=== PATIENT | female | born 1995 | race African-American/Black ===

== ENCOUNTER 2018-12-14 19:17 | Inpatient (IN) ==
[2018-12-14 19:46] LABS: Apearance,Urine CLEAR (Clear); Bilirubin,Urine Negative (Negative); Blood, Urine Negative (Negative); Glucose,Urine (UA) 50 mg/dL (Negative); Ketones,Urine Negative (Negative); Mucus,Urine Occasional /LPF (Occasional); Nitrite,Urine Negative (Negative); Protein,Urine Negative; RBC,Urine 1 /HPF (0-4); Squamous Epithelial Cell,Urine Occasional /HPF (0-10); Urine Color Yellow (Yellow); Urine Specific Gravity 1.011 (1.001-1.035); Urine Urobilinogen < 2.0 EU/DL (0.2-1.0); WBC,Urine 4 /HPF (0-6)
[2018-12-14] MEDS ORDERED: BUTORPHANOL 1 MG/ML VIAL IM ONE (20:22)
[2018-12-14] MEDS ORDERED: ONDANSETRON 4 MG/2 ML VIAL IM ONE (20:23)
[2018-12-14] MEDS: LACTATED RINGERS 1,000 ML IV SCH (22:45)
[2018-12-14] MEDS ORDERED: ONDANSETRON 4 MG/2 ML VIAL IV PRN (23:10)
[2018-12-14] MEDS ORDERED: MEPERIDINE 50 MG/1 ML VIAL IM PRN (23:10)
[2018-12-14] MEDS ORDERED: BUTORPHANOL 2 MG/ML VIAL IV PRN (23:10)
[2018-12-15 00:20] LABS: Basophils % 0.3 % (0.0-0.8); Eosinophils # 0.2 10*3/uL (0.0-0.87); Eosinophils % 1.2 % (0.00-10.9); Hematocrit 35.8 VOL% (35.7-47.0); Immature Granulocytes % 0.6 %; Immature Granulocytes Absolute 0.08 #; Lymphocytes # 1.3 10*3/uL (1.4-4.0); Lymphocytes % 9.5 % (21.3-54.2); Mean Corpuscular HGB Conc 30.7 GM/DL (32-36); Monocytes % 6.7 % (1.7-12.7); Neutrophils % 81.7 % (38.7-73.9); Platelet Count 222 T/CUMM (130-400); Red Blood Count 4.84 MC/CUMM (3.8-5.5); Red Cell Distribution Width 15.8 % (9.3-17.3); White Blood Count 14.1 T/CUMM (4-12)
[2018-12-15] MEDS: OXYTOCIN/LR 20 UNIT/1,000 ML BAG IV SCH ×2 (00:27→09:09)
[2018-12-15 00:47] LABS: Alanine Aminotransferase 20 U/L (13-56); Albumin 2.9 G/DL (3.4-5.0); Alkaline Phosphatase 163 U/L (45-117); Aspartate Amino Transferase 19 U/L (0-37); Bilirubin,Total < 0.39 MG/DL (0.2-1.0); Blood Urea Nitrogen 5 MG/DL (7-18); Calcium 8.4 MG/DL (8.5-10.1); Glucose 113 MG/DL (74-106); Osmolality,Calculated 278.3 MOS/KG (273-304); Total Protein 6.7 G/DL (6.4-8.3)
[2018-12-15] MEDS ORDERED: hydrOXYzine HCL 25 MG/1 ML VIAL IM PRN (01:52)
[2018-12-15] MEDS ORDERED: ePHEDrine 50 MG/ML AMP IV PRN (01:52)
[2018-12-15] MEDS ORDERED: diphenhydrAMINE 50 MG/1 ML VIAL IV PRN ×2 (01:52)
[2018-12-15] MEDS ORDERED: NALOXONE 0.4 MG/ML VIAL IV PRN (01:52)
[2018-12-15] MEDS ORDERED: CITRIC ACID/SODIUM CITRATE 30 ML UDCUP PO ONE (01:54)
[2018-12-15] MEDS ORDERED: FAMOTIDINE 20 MG/2 ML VIAL IV ONE (01:54)
[2018-12-15] MEDS ORDERED: fentaNYL 2 MCG/ROPIV 0.2% EPID 100 ML EPIDURAL SCH (02:00)
[2018-12-15] MEDS ORDERED: miSOPROStol 200 MCG TABLET ONE (02:04)
[2018-12-15] MEDS ORDERED: LIDOCAINE 1% 50 ML VIAL ONE (02:04)
[2018-12-15] MEDS: LACTATED RINGERS 1,000 ML IV SCH (02:28)
[2018-12-15 04:58] LABS: Cord Arterial Blood HCO3 20.8 MMOL/L
[2018-12-15 04:59] LABS: Cord Venous Blood HCO3 25.1 MMOL/L; Cord Venous Blood PCO2 47.3 MMHG; Cord Venous Blood PO2 52.9 MMHG
[2018-12-15] MEDS ORDERED: PSEUDOEPHEDRINE 30 MG TABLET PO PRN (09:02)
[2018-12-15] MEDS: DOCUSATE SODIUM 100 MG CAPSULE PO SCH ×2 (09:08→21:21)
[2018-12-15] MEDS ORDERED: BENZOCAINE 20%/MENTHOL 0.5% SPRAY 56 GM CAN TOP PRN (15:52)
[2018-12-15] MEDS: IBUPROFEN 800 MG TABLET PO PRN (19:35)
[2018-12-15] MEDS: ACETAMINOPHEN/CODEINE 300-30 MG TABLET PO PRN (19:35)
[2018-12-16] MEDS: LACTATED RINGERS 1,000 ML IV SCH (02:47)
[2018-12-16] MEDS: OXYTOCIN/LR 20 UNIT/1,000 ML BAG IV SCH (02:47)
[2018-12-16 05:47] LABS: Basophils % 0.2 % (0.0-0.8); Eosinophils # 0.3 10*3/uL (0.0-0.87); Eosinophils % 2.8 % (0.00-10.9); Hematocrit 34.4 VOL% (35.7-47.0); Immature Granulocytes % 0.4 %; Immature Granulocytes Absolute 0.05 #; Lymphocytes # 1.5 10*3/uL (1.4-4.0); Lymphocytes % 12.2 % (21.3-54.2); Mean Corpuscular Volume 73.7 FL (87-102); Monocytes % 6.2 % (1.7-12.7); Neutrophils % 78.2 % (38.7-73.9); Platelet Count 290 T/CUMM (130-400); Red Blood Count 4.67 MC/CUMM (3.8-5.5); Red Cell Distribution Width 15.9 % (9.3-17.3); White Blood Count 12.1 T/CUMM (4-12)
[2018-12-16 06:11] LABS: Acanthocytes Few; Anisocytosis 1+; Ovalocytes 1+; Platelet Estimate Adequate
[2018-12-16] MEDS: ACETAMINOPHEN/CODEINE 300-30 MG TABLET PO PRN (08:02)
[2018-12-16] MEDS: IBUPROFEN 800 MG TABLET PO PRN ×2 (08:03→19:21)
[2018-12-16] MEDS: DOCUSATE SODIUM 100 MG CAPSULE PO SCH ×2 (08:03→20:45)
[2018-12-17 07:21] VITALS: BP 124/74
[2018-12-17] MEDS: DOCUSATE SODIUM 100 MG CAPSULE PO SCH (08:49)
== END 2018-12-17 12:40 | disposition home or self-care (01) | DRG 560 ==
LOC: N.LDOUT 19:17 → N.LD 19:19 → N.OB 12-15 08:19
PROVIDERS: ADMIT Obstetrics & Gynecology; ATTEND Obstetrics & Gynecology

== ENCOUNTER 2020-08-22 01:33 | Inpatient (IN) ==
[2020-08-22] MEDS ORDERED: AMPICILLIN 2,000 MG VIAL ONE (01:49)
[2020-08-22] MEDS ORDERED: SODIUM CHLORIDE 0.9% 0 ML IV ONE (01:50)
[2020-08-22] MEDS ORDERED: AMPICILLIN INJ 2,000 MG in SODIUM CHLORIDE 0.9% 100 ML IV ONE (02:00)
[2020-08-22] MEDS ORDERED: ONDANSETRON 4 MG/2 ML VIAL IV PRN (02:05)
[2020-08-22] MEDS ORDERED: TRANEXAMIC ACID 1,000 MG/10 ML VIAL ONE (02:08)
[2020-08-22] MEDS ORDERED: METHYLERGONOVINE 0.2 MG/1 ML AMP ONE (02:08)
[2020-08-22] MEDS ORDERED: miSOPROStoL 200 MCG TABLET ONE ×2 (02:08→04:40)
[2020-08-22] MEDS ORDERED: CARBOPROST TROMETHAMINE 250 MCG/ML AMP IM ONE (02:08)
[2020-08-22] MEDS ORDERED: OXYTOCIN/LR 20 UNIT/1,000 ML BAG IV ONE ×3 (02:08→04:23)
[2020-08-22] MEDS ORDERED: SODIUM CHLORIDE 0.9% 100 ML IV ONE (02:09)
[2020-08-22] MEDS ORDERED: LIDOCAINE 1% 50 ML VIAL ONE (02:09)
[2020-08-22 02:12] LABS: Bacteria,Urine Occasional /HPF (Few); Bilirubin,Urine Negative (Negative); Blood, Urine Negative (Negative); Glucose,Urine (UA) Negative (Negative); Ketones,Urine 5 mg/dL (Negative); Mucus,Urine Occasional /LPF (Occasional); Nitrite,Urine Negative (Negative); Protein,Urine Negative; RBC,Urine 2 /HPF (0-4); Squamous Epithelial Cell,Urine Occasional /HPF (0-10); Urine Appearance CLEAR (Clear); Urine Color Straw (Yellow); Urine Urobilinogen < 2.0 EU/DL (0.2-1.0); WBC,Urine 10 /HPF (0-6)
[2020-08-22] MEDS ORDERED: MEPERIDINE 50 MG/1 ML VIAL ONE (02:14)
[2020-08-22 02:24] LABS: Basophils % 0.3 % (0.0-0.8); Eosinophils # 0.3 10*3/uL (0.0-0.87); Eosinophils % 2.1 % (0.00-10.9); Hematocrit 33.8 VOL% (35.7-47.0); Hemoglobin 10.2 GM/DL (12.0-16.0); Immature Granulocytes % 0.5 %; Immature Granulocytes Absolute 0.07 #; Lymphocytes # 2.2 10*3/uL (1.4-4.0); Lymphocytes % 14.6 % (21.3-54.2); Mean Corpuscular HGB Conc 30.2 GM/DL (32-36); Mean Corpuscular Volume 74.8 FL (87-102); Monocytes % 8.1 % (1.7-12.7); Neutrophils % 74.4 % (38.7-73.9); Platelet Count 284 T/CUMM (130-400); Red Blood Count 4.52 MC/CUMM (3.8-5.5); Red Cell Distribution Width 17.2 % (9.3-17.3)
[2020-08-22] MEDS ORDERED: LACTATED RINGERS 1,000 ML IV SCH (02:30)
[2020-08-22 02:50] LABS: Cord Arterial Blood HCO3 23.9 MMOL/L
[2020-08-22 02:52] LABS: Cord Venous Blood HCO3 24.1 MMOL/L; Cord Venous Blood PO2 30.9
[2020-08-22 02:54] LABS: Alanine Aminotransferase 18 U/L (13-56); Albumin 2.7 G/DL (3.4-5.0); Alkaline Phosphatase 161 U/L (45-117); Aspartate Amino Transferase 25 U/L (0-37); Bilirubin,Total < 0.39 MG/DL (0.2-1.0); Blood Urea Nitrogen 5 MG/DL (7-18); Calcium 8.8 MG/DL (8.5-10.1); Carbon Dioxide 23 MMOL/L (21-32); Estimated Glom Filtration Rate 149 ML/MIN; Glucose 71 MG/DL (74-106); Osmolality,Calculated 273.4 MOS/KG (273-304); Potassium 3.5 MMOL/L (3.5-5.1); Sodium 140 MMOL/L (136-145)
[2020-08-22 04:21] LABS: Hypochromasia 1+; Microcytosis 1+
[2020-08-22 04:22] LABS: Ovalocytes Slight; Platelet Estimate Normal; Polychromasia Slight
[2020-08-22] MEDS ORDERED: MEPERIDINE 50 MG/1 ML VIAL IV ONE (06:11)
[2020-08-22] MEDS: DOCUSATE SODIUM 100 MG CAPSULE PO SCH ×2 (08:43→20:37)
[2020-08-22] MEDS: MULTIVITAMIN (PRENATAL) TABLET PO SCH (08:43)
[2020-08-22 09:47] LABS: Basophils % 0.2 % (0.0-0.8); Eosinophils # 0.1 10*3/uL (0.0-0.87); Eosinophils % 0.7 % (0.00-10.9); Hematocrit 33.7 VOL% (35.7-47.0); Hemoglobin 10.4 GM/DL (12.0-16.0); Immature Granulocytes % 0.5 %; Immature Granulocytes Absolute 0.09 #; Lymphocytes # 1.1 10*3/uL (1.4-4.0); Lymphocytes % 5.9 % (21.3-54.2); Mean Corpuscular HGB Conc 30.9 GM/DL (32-36); Mean Corpuscular Volume 73.7 FL (87-102); Mean Platelet Volume 11.7 FL (9.6-12.0); Monocytes % 6.7 % (1.7-12.7); Platelet Count 270 T/CUMM (130-400); Red Blood Count 4.57 MC/CUMM (3.8-5.5); Red Cell Distribution Width 16.8 % (9.3-17.3); White Blood Count 17.9 T/CUMM (4-12)
[2020-08-22] MEDS: IBUPROFEN 800 MG TABLET PO PRN ×2 (11:17→23:13)
[2020-08-23 06:27] LABS: Basophils % 0.3 % (0.0-0.8); Eosinophils # 0.3 10*3/uL (0.0-0.87); Eosinophils % 2.8 % (0.00-10.9); Hematocrit 34.2 VOL% (35.7-47.0); Hemoglobin 10.5 GM/DL (12.0-16.0); Immature Granulocytes % 0.8 %; Immature Granulocytes Absolute 0.09 #; Lymphocytes % 17.4 % (21.3-54.2); Mean Corpuscular HGB Conc 30.7 GM/DL (32-36); Mean Corpuscular Volume 73.5 FL (87-102); Mean Platelet Volume 13.1 FL (9.6-12.0); Monocytes % 7.3 % (1.7-12.7); Neutrophils % 71.4 % (38.7-73.9); Platelet Count 273 T/CUMM (130-400); Red Blood Count 4.65 MC/CUMM (3.8-5.5); Red Cell Distribution Width 16.8 % (9.3-17.3); White Blood Count 11.3 T/CUMM (4-12)
[2020-08-23 06:53] LABS: Hypochromasia Slight; Platelet Estimate Adequate
[2020-08-23 08:39] VITALS: BP 111/71
[2020-08-23] MEDS: MULTIVITAMIN (PRENATAL) TABLET PO SCH (09:11)
[2020-08-23] MEDS: DOCUSATE SODIUM 100 MG CAPSULE PO SCH (09:11)
[2020-08-23] MEDS ORDERED: DIPH/TET/ACEL PERT BOOSTER VACCINE 0.5 ML VIAL IM ONE (10:05)
[2020-08-23] MEDS: IBUPROFEN 800 MG TABLET PO PRN (14:11)
== END 2020-08-23 14:45 | disposition home or self-care (01) | DRG 560 ==
LOC: N.LDOUT 01:33 → N.LD 01:36 → N.OB 07:58
PROVIDERS: ADMIT Obstetrics & Gynecology; ATTEND Obstetrics & Gynecology